=== PATIENT | male | born 2000 | race Native Hawaiian/Other Pacific Islander ===

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

== ENCOUNTER 2021-06-17 10:53 | Outpatient (CLI) | payer BC | END 2021-06-17 22:08 | disposition home or self-care (01) | LOC: US 10:53 | PROVIDERS: ATTEND Nurse Practitioner Family | DX: R74.01 Elevation of levels of liver transaminase levels (principal) ==